=== PATIENT | female | born 1950 | race Caucasian/White ===

== ENCOUNTER 2018-05-05 06:24 | Day surgery (SDC) | payer MEDICARE, BC ==
[2018-05-05] MEDS ORDERED: LIDOCAINE 100 MG SYRINGE (07:40)
[2018-05-05] MEDS ORDERED: FENTAnyl 50 MCG/ML VIAL (07:40)
[2018-05-05] MEDS ORDERED: PROPOFOL 60 ML (07:40)
== END 2018-05-05 14:33 | disposition home or self-care (01) ==
LOC: GIL 06:24
DX: K29.30 Chronic superficial gastritis without bleeding (principal); K63.5 Polyp of colon; K57.90 Diverticulosis of intestine, part unspecified, without perforation or abscess without bleeding; K64.4 Residual hemorrhoidal skin tags; K64.8 Other hemorrhoids; K21.9 Gastro-esophageal reflux disease without esophagitis; I10 Essential (primary) hypertension; E03.9 Hypothyroidism, unspecified
CPT/HCPCS: 43239; 88305; 88312